=== PATIENT | female | born 2000 | race Caucasian/White ===

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

== ENCOUNTER 2022-05-21 06:55 | Emergency (ER) | payer OTHER, BC ==
[2022-05-21 07:10] VITALS: BP 118/76
--- NOTE | 2022-05-21 07:20 | ED Physician Documentation ---
History of Present Illness - Stated complaint Stated Complaint: FOOT RASH - Chief complaint Chief Complaint: General - History obtained from History obtained from: Patient, Family - Additonal information Additional information: She developed sore throat a few days ago which is almost gone and over the last day or so has developed itchy lesions to the palms and soles. She is here with her mother. Review of Systems Constitutional: reports: Chills, Fatigue Nose: reports: Rhinorrhea / runny nose Throat: reports: Sore throat PD PAST MEDICAL HISTORY - Past Medical History Past Medical History: No Cardiovascular: None Respiratory: None Neuro: None Endocrine/Autoimmune: None GI: None [employer]: None : None HEENT: None Psych: None Musculoskeletal: None Derm: None - Past Surgical History Past Surgical History: No - Present Medications Home Medications: Ambulatory Orders Medication Instructions Recorded Confirmed Doxepin [SINEquan] 10 mg PO TID PRN #14 cap 05/21/22 - Allergies Allergies/Adverse Reactions: Allergies Allergy/AdvReac Type Severity Reaction Status Date / Time No Known Drug Allergies Allergy Verified 05/21/22 07:06 - Social History Does the pt smoke?: No Smoking Status: Never smoker Does the pt drink ETOH?: No Does the pt have substance abuse?: No - Immunizations Immunizations are current?: Yes PD ED PE NORMAL - Vitals Vital signs reviewed: Yes - General General: Alert and oriented X 3, No acute distress - HEENT HEENT: PERRL, EOMI - Neck Neck: Other (Vesicular lesions on the soft palate) - Derm Derm: Other (Vesicular lesions on the palms and soles sparing the rest of the body) - Neuro Neuro: Alert and oriented X 3, Normal speech Results - Vitals Vitals: Vital Signs - 24 hr 05/21/22 07:07 Temperature 36.7 C Heart Rate 64 Respiratory 16 Rate Blood Pressure 118/76 O2 Saturation 100 Oxygen O2 Source Room air Departure - Departure Disposition: 01 Home, Self Care Clinical Impression: Hand, foot and mouth disease Condition: Good Record reviewed to determine appropriate education?: Yes Instructions: ED Hand Foot Mouth Disease Ch Prescriptions: Doxepin [SINEquan] 10 mg PO TID PRN #14 cap PRN Reason: Itching Comments: Ibuprofen as needed per package instructions for the pain. Adding a prescription anti-itch medicine, Do not drink or drive with it. Return if worse.
== END 2022-05-21 07:30 | disposition home or self-care (01) ==
LOC: ED 06:55
DX: B08.4 Enteroviral vesicular stomatitis with exanthem (principal)
CPT/HCPCS: 99282

== ENCOUNTER 2022-07-26 11:02 | Outpatient (CLI) | payer OTHER, BC ==
--- NOTE | 2022-07-26 14:28 | XRAY Report ---
PROCEDURE: Tibia and fibula x-ray INDICATIONS: PAIN IN RIGHT LOWER LEG TECHNIQUE: 2 views of the tibia and fibula were acquired. COMPARISON: None FINDINGS: Bones: No fractures or dislocations. No suspicious bony lesions. Soft tissues: No suspicious soft tissue calcifications or masses. IMPRESSION: Unremarkable tibia and fibula radiographs Reviewed by: Grabiel Ga MD on 07/26/2022 1:26 PM [facility] Approved by: Grabiel Ga MD on 07/26/2022 1:26 PM [facility] Station ID: [id number]
== END 2022-07-26 11:03 | disposition home or self-care (01) ==
LOC: DI 11:02
PROVIDERS: ATTEND Pediatrics
DX: M79.661 Pain in right lower leg (principal)